=== PATIENT | female | born 1970 | race Caucasian/White ===

== ENCOUNTER 2017-09-18 10:22 | Emergency (ER) | payer BC ==
[~2017-09-18] VITALS: Ht 180.3 cm; Wt 76.7 kg
--- NOTE | 2017-09-18 10:59 | ED Abdominal Pain ---
General Chief Complaint: Abdominal/GI Problems Stated Complaint: CONSTIPATED Nursing Triage Note: PATIENT STATES THAT SHE WAS SEEN AT [facility] AND DIAGNOSED WITH VERTIGO RECENTLY. SHE WAS STARTED ON A MEDICATION FOR NAUSEA NAD HAS NOT HAD A BM IN 5 DAYS. SHE NOTICED YESTERDAY THAT CONSTIPATION IS A SIDE EFFECT OF HER NEW MED. SHE STARTED TRYING FIBER, MIRALAX, ENEMAS AND SUPPOSITORY YESTERDAY BUT NOTHING IS HELPING. Sepsis Screen: No Definite Risk Source of Information: Patient Exam Limitations: No Limitations History of Present Illness Date Seen by Provider: Sep 18, 2017 Time Seen by Provider: 10:57 Initial Comments to ER with reports of constipation. She's had a lifetime of troubles with constipation. She was recently seen at [facility] for vertigo. She was given a medication and states this seems to have worsened her constipation. Today is day #5 without a bowel movement. Yesterday, she took fiber gummies, MiraLAX and this morning she tried a fleets enema but has still not had any relief. She reports rectal pain. No nausea or vomiting. Timing/Duration: 4-5 Days Severity/Quality: Moderate Location: Generalized Abdomen Radiation: No Radiation Activities at Onset: None Allergies and Home Medications Allergies Coded Allergies: No Known Drug Allergies (Unverified , 09/18/17) Patient Home Medication List Home Medication List Reviewed: Yes Review of Systems Constitutional: see HPI EENTM: No Symptoms Reported Respiratory: No Symptoms Reported Cardiovascular: No Symptoms Reported Gastrointestinal: See HPI, Constipated Genitourinary: No Symptoms Reported Musculoskeletal: no symptoms reported Skin: no symptoms reported Psychiatric/Neurological: No Symptoms Reported Endocrine: No Symptoms Reported Hematologic/Lymphatic: No Symptoms Reported Past Eoocdva-Vdekap-Drixso Hx Patient Social History Recent Foreign Travel: No Contact w/Someone Who Travel: No Recent Infectious Disease Expo: No Physical Exam Vital Signs Vital Signs - First Documented 09/18/17 10:36 Temp 98.1 Pulse 85 Resp 18 B/P (MAP) 111/64 (80) Pulse Ox 100 Capillary Refill : Less Than 3 Seconds General Appearance: WD/WN, no apparent distress HEENT: PERRL/EOMI, normal ENT inspection Neck: non-tender, full range of motion Respiratory: no respiratory distress, no accessory muscle use Cardiovascular: regular rate, rhythm, no murmur Gastrointestinal: normal bowel sounds, non tender, soft Neurologic/Psychiatric: alert, normal mood/affect, oriented x 3 Skin: normal color, warm/dry Progress/Results/Core Measures Results/Orders My Orders Orders - TIARA PIERRE APRN Acute Abd Series (09/18/17 10:50) Mineral Oil Enema (Fleet Oil Enema) (09/18/17 11:30) Chest Pa/Lat (2 View) (09/18/17 11:27) Vital Signs/I&O 09/18/17 10:36 Temp 98.1 Pulse 85 Resp 18 B/P (MAP) 111/64 (80) Pulse Ox 100 Blood Pressure Mean: 80 Progress Progress Note : Time: 11:43 Progress Note 1140-mineral oil enema given. Digital rectal exam performed. There is a palpable fecal impaction this is just a bit beyond my reach. If the mineral oil fails to result in bowel movement we'll proceed with soapsuds enema. 1227- we did have to do a soapsuds enema. This did result in a large bowel movement.she feels much better and ready to go home. I also discussed with her and her the right hilar adenopathy and need for follow-up with Eduarda Ferraro to schedule an outpatient chest CT. Diagnostic Imaging Diagonstic Imaging: Xray Comments NAME: [facility] REC#: [id number] PT STATUS: REG ER : 1970 PHYSICIAN: TIARA PIERRE APRN ADMIT DATE: 09/18/17/ER Draft Date of Exam:09/18/17 ACUTE ABD SERIES Acute abdomen series. Indication: Constipation. There are no prior studies available for comparison. The accompanying erect PA chest shows heart size to be within normal limits. The right hilum is prominent compared to the left. This is probably related to the pulmonary vessels alone and not to a hilar mass. If previous studies are available, they would be a helpful comparison. If there are no prior exams, followup PA and lateral chest should be obtained. The lungs are clear. There is no sign of pneumoperitoneum. Supine and erect views of the abdomen are obtained. There is gas in both large and small bowel in a nonspecific fashion. There is no evidence for a bowel obstruction. There does appear to be a fair amount of fecal material in the ascending colon and in the rectosigmoid colon. There is no mass or organomegaly appreciated, although the liver shadow does seem prominent. There is a small calcific density low in the pelvis on the left. This is near the ureterovesical junction and this could be related to a calculus or more likely a small phlebolith. However, if there is clinical concern regarding obstruction of the left collecting system, then CT would be recommended for further evaluation. There does appear to be small phleboliths low in the pelvis on the right. The osseous structures are intact. Impression: 1. The bowel gas pattern is nonspecific. There is no acute abnormality identified. 2. The small calcific density low in the pelvis on the left is more likely due to a phlebolith than to a ureteral stone. Recommendations as above. 3. The right hilum is prominent. Unless there are previous exams available to demonstrate that this finding is stable, then a followup PA and lateral chest would be recommended. 4. These results were discussed with Tiara Pierre APRN. Dictated on workstation # [id number] Dict: 09/18/17 1122 Trans: 09/18/17 1133 CVB [id number] Interpreted by: NICOLE MURRY MD Electronically signed by: NAME: [facility] REC#: [id number] PT STATUS: REG ER : 1970 PHYSICIAN: TIARA PIERRE APRN ADMIT DATE: 09/18/17/ER Draft Date of Exam:09/18/17 CHEST PA/LAT (2 VIEW) Followup Comparison: Abdomen series from earlier the same date. Findings: Two views of the chest were obtained. Heart size is normal. There is no central venous congestion. As seen on the recent single view chest with the abdomen series there is some nodular prominence of the right hilum and suggestion of a possible 3.5 cm right perihilar mass. There is minimal fullness in the left hilum also present. The lungs are otherwise clear. Impression: Bilateral hilar fullness right more so than left. CT scan of the chest is suggested for further evaluation as underlying neoplasm or adenopathy is not entirely excluded. Called to Tiara Pierre APRN at 11:53 a.m by cvb. Dictated on workstation # [id number] Dict: 09/18/17 1147 Trans: 09/18/17 1156 [facility] [id number] Interpreted by: DENIZ PATTON DO Electronically signed by: Departure Impression Primary Impression: Fecal impaction Additional Impression: Constipation Disposition: 01 HOME, SELF-CARE Condition: Stable Departure-Patient Inst. Decision time for Depature: 11:44 Referrals: EDUARDA FERRARO, DNP (PCP/Family) Primary Care Physician Patient Instructions: Constipation, Adult (DC) Add. Discharge Instructions: 1. The chest x-ray showed an area on the right lung that could represent an enlarged lymph node. Recommendations would be for a chest CAT scan and this could be arranged byEduarda Ferraro. Return to ER for any concerns, drink plenty of fluids and increase her fiber intake. I would also take Colace one tablet daily. You can do MiraLAX 1 capful twice daily for the next 2-3 days.All discharge instructions reviewed with patient and/or family. Voiced understanding. Copy Copies To 2: JENNIFER FERRARO PETER J APRN Sep 18, 2017 10:59
[2017-09-18] MEDS ORDERED: MINERAL OIL ENEMA 133 ML BTL PR ONE (11:30)
--- NOTE | 2017-09-18 11:34 | Diagnostic Imaging Report ---
Acute abdomen series. Indication: Constipation. There are no prior studies available for comparison. The accompanying erect PA chest shows heart size to be within normal limits. The right hilum is prominent compared to the left. This is probably related to the pulmonary vessels alone and not to a hilar mass. If previous studies are available, they would be a helpful comparison. If there are no prior exams, followup PA and lateral chest should be obtained. The lungs are clear. There is no sign of pneumoperitoneum. Supine and erect views of the abdomen are obtained. There is gas in both large and small bowel in a nonspecific fashion. There is no evidence for a bowel obstruction. There does appear to be a fair amount of fecal material in the ascending colon and in the rectosigmoid colon. There is no mass or organomegaly appreciated, although the liver shadow does seem prominent. There is a small calcific density low in the pelvis on the left. This is near the ureterovesical junction and this could be related to a calculus or more likely a small phlebolith. However, if there is clinical concern regarding obstruction of the left collecting system, then CT would be recommended for further evaluation. There does appear to be small phleboliths low in the pelvis on the right. The osseous structures are intact. Impression: 1. The bowel gas pattern is nonspecific. There is no acute abnormality identified. 2. The small calcific density low in the pelvis on the left is more likely due to a phlebolith than to a ureteral stone. Recommendations as above. 3. The right hilum is prominent. Unless there are previous exams available to demonstrate that this finding is stable, then a followup PA and lateral chest would be recommended. 4. These results were discussed with Haider Pierre APRN. Dictated by: Dictated on workstation # [id number]
--- NOTE | 2017-09-18 11:56 | Diagnostic Imaging Report ---
Followup Comparison: Abdomen series from earlier the same date. Findings: Two views of the chest were obtained. Heart size is normal. There is no central venous congestion. As seen on the recent single view chest with the abdomen series there is some nodular prominence of the right hilum and suggestion of a possible 3.5 cm right perihilar mass. There is minimal fullness in the left hilum also present. The lungs are otherwise clear. Impression: Bilateral hilar fullness right more so than left. CT scan of the chest is suggested for further evaluation as underlying neoplasm or adenopathy is not entirely excluded. Called to Haider Pierre APRN at 11:53 a.m by rosendo. Dictated by: Dictated on workstation # [id number]
[2017-09-18 12:46] VITALS: BP 111/64
== END 2017-09-18 12:46 | disposition home or self-care (01) ==
LOC: EDUNIT# 10:22 → ER 10:23
DX: K59.00 Constipation, unspecified (principal)
CPT/HCPCS: 71046; 74022

== ENCOUNTER → 2017-09-22 | Outpatient (CLI) | payer BC ==
[~2017-09-22] MED LIST: CATHETER FLUSH 10 ML SYR IV PRN; IOHEXOL 350 MG/ML 100 ML (OMNIPAQUE 350) VIAL IV ONE; NS 250 ML (IVPB) BAG IV ONE
--- NOTE | 2017-09-22 11:51 | Diagnostic Imaging Report ---
PROCEDURE: CT chest with contrast only. TECHNIQUE: Multiple contiguous axial images were obtained through the chest after administration of intravenous contrast. INDICATION: Abnormal chest x-ray with hilar prominence. FINDINGS: The lungs are clear, bilaterally. No evidence of mass or infiltrate is detected. There is no significant pleural or pericardial fluid. No hilar mass or adenopathy is identified. There is indentation of the superior endplate at T8. This could be due to Schmorl's node or minimal compression deformity. Upper abdominal sections reveal no abnormality. IMPRESSION: Unremarkable chest without evidence of hilar lesion. Hilar prominence on recent chest x-ray may be related to vascularity. Dictated by: Dictated on workstation # [id number]
--- NOTE | 2017-09-22 11:58 | Diagnostic Imaging Report ---
INDICATION: Left chest nodule. Exam compared with study 09/18/2017. Hilar and mediastinal contours were unremarkable. There is no focal infiltrate, effusion or pneumothorax. No mass evident. No failure. IMPRESSION: No acute appearing abnormality. Dictated by: Dictated on workstation # [id number]
== END ==
LOC: RAD 11:04
PROVIDERS: ATTEND Nurse Practitioner Family
DX: R91.8 Other nonspecific abnormal finding of lung field (principal); R22.2 Localized swelling, mass and lump, trunk
CPT/HCPCS: 71046; 71260

== ENCOUNTER → 2018-08-06 | Outpatient (CLI) | payer BC ==
--- NOTE | 2018-08-06 08:44 | Diagnostic Imaging Report ---
PROCEDURE: US Thyroid. TECHNIQUE: Multiple real-time grayscale images were obtained of the thyroid in various projections. INDICATION: Thyroid disease. COMPARISON: 12/07/2017. FINDINGS: There has been interval right thyroid lobectomy. Left thyroid lobe is somewhat heterogeneous in its echotexture but showed no discrete solid or cystic masses. Color Doppler blood flow is normal. No fluid collection. IMPRESSION: Interval right lobectomy heterogeneous but nonfocal, left lobe stable. Dictated by: Dictated on workstation # [id number]
== END ==
LOC: RAD 07:58
PROVIDERS: ATTEND Nurse Practitioner Family
DX: E07.9 Disorder of thyroid, unspecified (principal); Z90.89 Acquired absence of other organs
CPT/HCPCS: 76536

== ENCOUNTER → 2019-01-03 | Outpatient (CLI) | payer BC ==
--- NOTE | 2019-01-03 16:42 | Diagnostic Imaging Report ---
PROCEDURE: US Thyroid. TECHNIQUE: Multiple real-time grayscale images were obtained of the thyroid in various projections. INDICATION: Hypothyroidism. COMPARISON: Comparison is made with prior thyroid ultrasound from 08/06/2018. FINDINGS: Right lobe of the thyroid is surgically absent. The left lobe measures 4.2 x 1.2 x 1.6 cm. The isthmus is 2 mm in thickness. The left lobe again demonstrates generalized parenchymal heterogeneity, but no discrete mass is seen. IMPRESSION: Status post right hemithyroidectomy. Left lobe remains heterogeneous, but no discrete thyroid mass is detected. Dictated by: Dictated on workstation # [id number]
== END ==
LOC: RAD 14:55
PROVIDERS: ATTEND Nurse Practitioner Family
DX: E03.8 Other specified hypothyroidism (principal); M25.50 Pain in unspecified joint; N93.8 Other specified abnormal uterine and vaginal bleeding; G47.09 Other insomnia
CPT/HCPCS: 76536

== ENCOUNTER → 2020-01-13 | Outpatient (CLI) | payer BC ==
--- NOTE | 2020-01-13 08:58 | Diagnostic Imaging Report ---
PROCEDURE: US Thyroid. TECHNIQUE: Multiple real-time grayscale images were obtained of the thyroid in various projections. INDICATION: Hypothyroidism COMPARISON: 01/03/2019 and 12/07/2017 FINDINGS: The right lobe of thyroid gland is not visualized, surgically absent. No abnormal soft tissue mass within the right thyroid lobe. The left lobe of thyroid gland measures 4.0 x 1.0 x 1.5 cm. It demonstrates a diffusely heterogeneous echotexture. An ovoid circumscribed 0.7 x 0.7 cm isoechoic nodule is present within the inferior pole of the left thyroid lobe. This is not definitely seen on the prior examination. Isthmus is unremarkable. IMPRESSION: New 0.7 cm TI-RADS 3 nodule within the inferior pole of the left thyroid lobe. Though this typically would not warrant followup, given the interval development, a followup ultrasound is recommended in 6 months to reevaluate. Right thyroidectomy without abnormal soft tissue mass within the right thyroid bed. Dictated by: Dictated on workstation # [id number]
== END ==
LOC: RAD 07:44
PROVIDERS: ATTEND Nurse Practitioner Family
DX: E04.1 Nontoxic single thyroid nodule (principal); E89.0 Postprocedural hypothyroidism
CPT/HCPCS: 76536

== ENCOUNTER → 2020-05-07 | Outpatient (CLI) | payer BC ==
[~2020-05-07] MED LIST changes: -CATHETER FLUSH 10 ML SYR IV PRN; +GADOBUTROL 10 MMOL/10 ML (GADAVIST) VIAL IV ONE; -IOHEXOL 350 MG/ML 100 ML (OMNIPAQUE 350) VIAL IV ONE; -NS 250 ML (IVPB) BAG IV ONE
[2020-05-07 12:41] LABS: BUN/CREATININE RATIO 13; CREATININE SERUM 0.89 MG/DL (0.60-1.30); GFR ESTIMATED > 60
--- NOTE | 2020-05-07 15:35 | Diagnostic Imaging Report ---
PROCEDURE: US Thyroid. TECHNIQUE: Multiple real-time grayscale images were obtained of the thyroid in various projections. INDICATION: Hypothyroidism. FINDINGS: Right lobe of the thyroid is surgically absent. Left lobe measures 4.0 x 0.9 x 1.5 cm. Isthmus is 2 mm in thickness. Left lobe does contain a slightly hyperechoic nodule in the lower pole approximately 7 mm x 7 mm x 6 mm, similar when compared with exam from 01/13/2020. There is diffuse heterogeneity to the left lobe. No other masses are detected. IMPRESSION: 1. Right lobe surgically absent. 2. Left lobe heterogeneity with stable subcentimeter nodule lower pole, similar to exam from 01/13/2020. Dictated by: Dictated on workstation # [id number]
--- NOTE | 2020-05-07 16:41 | Diagnostic Imaging Report ---
PROCEDURE: MRI neck with and without contrast. TECHNIQUE: Multiplanar, multisequence MRI of the neck was performed with and without contrast. INDICATION: Left-sided cervical lymphadenopathy. COMPARISON: Comparison is made with a thyroid sonogram from earlier in the same day. FINDINGS: The visualized intracranial contents appear unremarkable. There is no evidence of mass effect. The basilar cisterns are patent. Amezquita-white matter signal characteristics appear appropriate. No abnormal intracranial enhancement is evident. The mastoid air cells appear clear. The paranasal sinuses appear clear. The orbital contents are unremarkable. The posterior nasopharynx and oropharynx appear appropriately symmetric. There are no findings of displacement of the parapharyngeal fat planes. There is no abnormal process evident within the prevertebral or retropharyngeal space. The base of the tongue appears appropriately symmetric. There is no thickening of the epiglottis. The vallecula and piriform sinuses are aerated. The vocal folds appear appropriate. The bilateral parotid glands and submandibular glands are unremarkable. There are operative changes of a previous right hemithyroidectomy. The previously described small nodule within the left lobe of the thyroid is not evident by MRI. There are small morphologically normal bilateral cervical chain lymph nodes. There are none which appear pathologically enlarged by size criteria. The largest measurable lymph node is a left level 2A lymph node that has a short axis measurement of only 5 mm. The vascular structures of the neck maintain appropriate flow voids. Cervical spine alignment is normal. There is no evidence to suggest significant canal stenosis. There is no suspicious marrow replacing lesion. IMPRESSION: 1. Previous right hemithyroidectomy. 2. Small morphologically normal bilateral cervical chain lymph nodes. No pathologically enlarged cervical lymph nodes are evident. 3. Appropriate symmetry of the aerodigestive tract. Dictated by: Dictated on workstation # [id number]
== END ==
LOC: RAD 11:57
PROVIDERS: ATTEND Nurse Practitioner Family
DX: M62.838 Other muscle spasm (principal); E03.8 Other specified hypothyroidism; E07.9 Disorder of thyroid, unspecified; R59.0 Localized enlarged lymph nodes; Z98.890 Other specified postprocedural states
CPT/HCPCS: 36415; 70543; 76536; 82565; 84520

== ENCOUNTER → 2021-10-04 | Outpatient (CLI) | payer BC ==
[~2021-10-04] MED LIST changes: +CATHETER FLUSH 10 ML SYR IV PRN; -GADOBUTROL 10 MMOL/10 ML (GADAVIST) VIAL IV ONE; +HOLD METFORMIN - RECEIVED CONTRAST 20 ML VIAL IV SCH; +IOHEXOL 350 MG/ML 100 ML (OMNIPAQUE 350) VIAL IV ONE; +NS 100 ML (IVPB) BAG IV ONE
--- NOTE | 2021-10-04 13:24 | Diagnostic Imaging Report ---
PROCEDURE: CT neck soft tissue with contrast. TECHNIQUE: Multiple contiguous axial images were obtained through the neck after the administration of contrast. Auto Exposure Controls were utilized during the CT exam to meet ALARA standards for radiation dose reduction. INDICATION: Cervical lymphadenopathy. History of thyroid cancer. COMPARISON: MRI neck on 05/07/2020. Findings: Stable postsurgical changes of right hemithyroidectomy. No evidence of residual thyroid tissue is seen in the thyroidectomy bed. The left lobe of the thyroid and isthmus have a normal appearance without evidence of suspicious nodule. There are shotty lymph nodes in the left base of neck and left supraclavicular region measuring up to 0.5 cm in short axis. Additional lymph nodes are seen in the bilateral level 2 cervical lymph node stations measuring up to 0.5 cm in short axis. No pathologically enlarged lymphadenopathy is seen in the neck. No evidence of soft tissue mass or fluid collection in the neck. The posterior nasopharynx and oropharynx demonstrate appropriate symmetry. There is no displacement of the parapharyngeal fat planes. There is no abnormal process evident within the prevertebral or retropharyngeal space. There is no evidence of abnormal thickening of the epiglottis or aryepiglottic folds. The vocal folds appear symmetric. The parotid and submandibular glands are unremarkable. The vascular structures the neck demonstrate no evidence of high-grade stenosis on this nondedicated exam. The visualized lung apices are clear. The visualized intracranial contents demonstrate no evidence of pathologic intracranial enhancement or intracranial mass effect. Visualized orbital contents are unremarkable. The visualized paranasal sinuses are clear. The mastoids and middle ears are clear. No acute osseous abnormality in the cervical spine. Impression: 1. Scattered lymph nodes in the bilateral level 2 cervical lymph node stations and base of the neck on the left which do not meet significance based on size criteria. Given the history of thyroid cancer further evaluation with nuclear medicine thyroid scan may be considered if indicated. Otherwise, continued regular surveillance is recommended as indicated. 2. Postsurgical changes of right hemithyroidectomy. No evidence of recurrent thyroid tissue is seen in the thyroidectomy bed. No suspicious nodules are seen in the left lobe of the thyroid or isthmus. 3. No evidence of mass or fluid collection in the aerodigestive tract. No evidence of airway compromise. Dictated by: Dictated on workstation # [id number]
== END ==
LOC: RAD 11:45
PROVIDERS: ATTEND Nurse Practitioner Family
DX: R59.0 Localized enlarged lymph nodes (principal); Z85.850 Personal history of malignant neoplasm of thyroid; Z90.89 Acquired absence of other organs
CPT/HCPCS: 70491